=== PATIENT | male | born 1995 | race Caucasian/White ===

== ENCOUNTER 2021-07-10 15:10 | Emergency (ER) | payer SELFPAY ==
[~2021-07-10] VITALS: Ht 172.7 cm; Wt 85.0 kg
[2021-07-10 15:36] VITALS: BP 185/96
[2021-07-10] MEDS ORDERED: LORazepam 1 MG tablet PO ONE (15:50)
== END 2021-07-10 17:27 | disposition home or self-care (01) ==
LOC: EEVIPCON 15:11 → ER 15:11
DX: R07.89 Other chest pain (principal); Z88.6 Allergy status to analgesic agent
CPT/HCPCS: 93005; 99283